=== PATIENT | male | born 2000 | race Asian ===

== ENCOUNTER 2023-02-24 20:43 | Emergency (ER) | payer BC, OTHER ==
[2023-02-24 20:51] VITALS: BP 108/61; PULSE 82; RESP 16; TEMP 99.8; BMI 16.1
[2023-02-24] MEDS ORDERED: SODIUM CHLORIDE 1,000 ML IV STA ×2 (21:36→22:49)
[2023-02-24] MEDS ORDERED: KETOROLAC TROMETHAMINE 30 MG/1 ML VIAL IVPUSH ONE (21:36)
[2023-02-24] MEDS ORDERED: KETOROLAC TROMETHAMINE 30 MG/1 ML VIAL ONE (21:49)
[2023-02-24 21:56] LABS: HEMATOCRIT 41.4 % (35.4-49); HEMOGLOBIN 14.7 G/dL (11.7-16.9); MCH 30.2 pg (25.7-33.7); MCHC 35.4 g/dl (32.0-35.9); MEAN CELL VOLUME 85.2 fl (80-96); MEAN PLT VOLUME 7.7 fl (7.5-11.1); PLATELET COUNT 174.6 10^3/uL (134-434); RBC 4.86 10^6/uL (4.00-5.60); RDW 14.7 % (11.9-15.9); WHITE BLOOD COUNT 11.3 10^3/uL (4.0-10.8)
[2023-02-24 22:12] LABS: ALBUMIN 4.4 g/dl (3.4-5.0); BLOOD UREA NITROGEN 17.8 mg/dl (7-18); CREATININE 0.9 mg/dl (0.6-1.3); POTASSIUM 3.5 mmol/L (3.5-5.1); SGOT/AST 30.1 U/L (15-37); SGPT/ALT 47.1 U/L (7-52); TOT PROT 7.2 g/dl (6.4-8.2)
[2023-02-24 22:39] LABS: PLATELET ESTIMATE ADEQUATE
[2023-02-24 23:07] LABS: BILIRUBIN,TOTAL 1.2 mg/dL (0.2-1)
== END 2023-02-24 23:50 | disposition home or self-care (01) ==
LOC: FER 20:43
PROC: 3E0333Z Introduction of Anti-inflammatory into Peripheral Vein, Percutaneous Approach (ICD-10-PCS; principal; 2023-02-24)
PROC: 3E0337Z Introduction of Electrolytic and Water Balance Substance into Peripheral Vein, Percutaneous Approach (ICD-10-PCS; 2023-02-24)
PROC: 3E0337Z Introduction of Electrolytic and Water Balance Substance into Peripheral Vein, Percutaneous Approach (ICD-10-PCS; 2023-02-24)
DX: R59.0 Localized enlarged lymph nodes (principal); R50.9 Fever, unspecified; J02.9 Acute pharyngitis, unspecified; B34.9 Viral infection, unspecified; Z20.822 Contact with and (suspected) exposure to COVID-19
CPT/HCPCS: 0241U-QW; 36415; 80053; 85027; 86308; 87651; 99284-25